=== PATIENT | female | born 1955 | race Hispanic/Latino ===

== ENCOUNTER 2017-11-13 04:59 | Emergency (ER) | payer OTHER ==
[~2017-11-13] VITALS: Ht 157.5 cm; Wt 120.2 kg
[~2017-11-13 04:59] MED LIST: ASPIRIN PO; GABAPENTIN300 MG PO; HYDROCODONE/APAP; LEVAQUIN500 MG PO; LIPITOR20 MG PO; LORTAB 7.5/325 PO; METOCLOPRAMIDE10 MG PO; Z.0.CYCLOBENZAPRINE1 PO; Z.0.MELOXICAM7.5 MG PO; Z.0.METOPROLOL TART2 PO; Z.0.OMEPRAZOLE40 MG PO; Z.0.SIMVASTATIN40 MG PO; Z.2.METFORMIN HCL500 PO
--- OUTSIDE RECORDS SUMMARY | 2017-11-13 05:03 | XMS REPORT | Clinical Summary ---
Author Author [facility] Organization [facility] Address Unknown Phone Unavailable Care Team Providers Care Measurement And Sensing Technician Name Role Phone Abraham Shelton MD PCP Allergies Not on File Current Medications Not on file Active Problems Not on file Encounters Date Type Specialty Care Team Description 01/14/2017 Transcribe Physical Therapy Juan Ybarra MD Facet hypertrophy of Orders lumbosacral region (Primary Dx) after 11/12/2016 Social History Tobacco Use Types Packs/Day Years Used Date Never Assessed Sex Assigned at Date Recorded Not on file Last Filed Vital Signs Not on file Plan of Treatment Health Maintenance Due Date Last Done Comments PAP SMEAR 1974 COLONOSCOPY 2003 MAMMOGRAM 2003 ZOSTER VACCINE 2013 INFLUENZA VACCINE 05/10/2017 Results Not on fileafter 11/12/2016 Insurance Payer Benefit Subscriber ID Type Phone Address Plan / Group [employer] TEX[employer] [id number] [facility] [place] [address]
[2017-11-13] MEDS ORDERED: ACETAMINOPHEN 1000 MG/100 ML IV STA (05:27)
[2017-11-13] MEDS ORDERED: ONDANSETRON HCL INJ 2 MG/ML VIAL IV STA (05:27)
[2017-11-13] MEDS ORDERED: SODIUM CHLORIDE 0.9% 1000ML 1,000 ML IV STA (05:27)
[2017-11-13] MEDS ORDERED: PANTOPRAZOLE 40 MG 10ML VIAL IV STA (05:27)
[2017-11-13 05:45] LABS: BASOPHILS # (AUTO) 0.1 (0.0-0.1); BASOPHILS % 0.6 % (0.0-1.0); EOSINOPHILS # (AUTO) 0.1 (0.0-0.4); EOSINOPHILS % 0.6 % (0.0-6.0); HEMATOCRIT 36.9 % (34.2-44.1); HEMOGLOBIN 11.6 g/dL (12.0-16.0); LYMPHOCYTES # (AUTO) 1.8 (1.0-3.2); LYMPHOCYTES % 13.5 % (18.0-39.1); MEAN CORPUSCULAR HEMOGLOBIN 26.5 pg (28-32); MEAN CORPUSCULAR HGB CONC 31.4 g/dL (31-35); MEAN CORPUSCULAR VOLUME 84.4 fL (81-99); MONOCYTES # (AUTO) 1.1 (0.2-0.8); MONOCYTES % 7.9 % (4.4-11.3); NEUTROPHILS # (AUTO) 10.3 (2.1-6.9); NEUTROPHILS % 76.9 % (38.7-80.0); PLATELET COUNT 280 x10e3/uL (140-360); RED BLOOD COUNT 4.37 x10e6/uL (3.6-5.1); RED CELL DISTRIBUTION WIDTH 14.6 % (11.7-14.4)
[2017-11-13 05:53] LABS: INR 0.96; PARTIAL THROMBOPLASTIN TIME 29.5 seconds (23.8-35.5); PROTHROMBIN TIME 13.3 seconds (11.9-14.5)
[2017-11-13 06:03] LABS: ALANINE AMINOTRANSFERASE 12 IU/L (0-55); ALBUMIN 3.4 g/dL (3.5-5.0); ALBUMIN/GLOBULIN RATIO 0.8 (0.8-2.0); ALKALINE PHOSPHATASE 130 IU/L (40-150); ANION GAP 15.1 mmol/L (8-16); BLOOD UREA NITROGEN 23 mg/dL (7-26); BUN/CREATININE RATIO 29 (6-25); CALCIUM 8.8 mg/dL (8.4-10.2); CARBON DIOXIDE 24 mmol/L (22-29); CHLORIDE 102 mmol/L (98-107); CREATINE KINASE 26 IU/L (29-168); CREATININE, SERUM 0.78 mg/dL (0.57-1.11); EST GLOMERULAR FILTRATION RATE > 60 ML/MIN (60-); GLUCOSE 131 mg/dL (74-118); POTASSIUM 4.1 mmol/L (3.5-5.1); SODIUM 137 mmol/L (136-145)
[2017-11-13 06:06] LABS: INFLUENZAE A&B ANTIGEN (RAPID) NEGATIVE (NEGATIVE); STREPTOCOCCUS GRP A ANTIGEN NEGATIVE (NEGATIVE)
[2017-11-13 06:25] LABS: B-TYPE NATRIURETIC PEPTIDE2 < 10.0 pg/mL (0-100)
[2017-11-13] MEDS ORDERED: KETOROLAC TROMETHAMINE 30 MG/ML VIAL IV STA (07:20)
--- NOTE | 2017-11-13 07:44 | Diagnostic Imaging Report ---
EXAMINATION: Chest, CHEST 2 VIEWS INDICATION: Chest pain COMPARISON: Chest 2 views 03/15/2014 FINDINGS: LINES: None. Heart: Normal cardiac silhouette. Vascular: The pulmonary vasculature is within normal limits. Atherosclerotic calcifications of the aortic arch. Mediastinum: No mediastinal, hilar, or axillary mass or lymphadenopathy. Lungs: No parenchymal mass. No focal consolidation. Pleura: No pleural effusion. No pneumothorax. Bones: No acute osseous abnormality. Degenerative changes of the thoracic spine. Soft tissues: Normal. Impression: No acute radiographic abnormality. Signed by: Dr. Reid Garcia M.D. on 11/13/2017 7:40 AM
== END 2017-11-13 08:00 | disposition home or self-care (01) ==
LOC: ER 04:59
DX: R50.9 Fever, unspecified (principal); R05 Cough; J20.9 Acute bronchitis, unspecified; I10 Essential (primary) hypertension; E11.9 Type 2 diabetes mellitus without complications
CPT/HCPCS: 36415; 71020; 80053; 82550; 82553; 83518; 83605; 83735; 83880; 84484; 85025; 85610; 85730; 87040; 87070; 87400; 93005; 99284; J1885; J2405; J7030; 71046

== ENCOUNTER → 2017-12-01 | Outpatient (CLI) | payer OTHER ==
--- NOTE | 2017-12-01 14:46 | Diagnostic Imaging Report ---
PROCEDURE:BIOPSY THYROID FNA COMPARISON:[facility], [place], OUTSIDE ULTRASOUND IMAGES, 11/07/2017, 11:27. INDICATIONS:THYROID BX/FNA FINDINGS: The patient's right neck was prepped and draped in sterile fashion after the procedure was explained and informed consent was obtained. Ultrasound evaluation showed a 1.4 x 0.9 x 1.3 cm solid, well-circumscribed, hypoechoic nodule in the posterior mid aspect of the right thyroid lobe, with mild increased vascularity. Lidocaine was used for local anesthesia. Under ultrasonic guidance, 7 passes were performed utilizing 10 cc syringes and 25 gauge needles, and accessed by Pathology. The patient tolerated the procedure well, and there were no immediate post-procedural complications. CONCLUSION: 1. Ultrasound guided fine needle biopsy of right thyroid lobe nodule. Boris Dorsey M.D. Dictated by: Boris Dorsey M.D. on 12/01/2017 at 14:47 Electronically approved by: Boris Dorsey M.D. on 12/01/2017 at 14:47
--- NOTE | 2017-12-01 14:47 | Diagnostic Imaging Report ---
PROCEDURE:ULTRASOUND GUIDANCE FOR PROCEDURE COMPARISON:[facility], [place], OUTSIDE ULTRASOUND IMAGES, 11/07/2017, 11:27. INDICATIONS:THYROID BX/FNA CONCLUSION:Please see previously dictated report under biopsy thyroid FNA, performed same date. Boris Dorsey M.D. Dictated by: Boris Dorsey M.D. on 12/01/2017 at 14:47 Electronically approved by: Boris Dorsey M.D. on 12/01/2017 at 14:47
== END ==
LOC: US 11:58
PROVIDERS: ATTEND Family Medicine
DX: E05.90 Thyrotoxicosis, unspecified without thyrotoxic crisis or storm (principal)
CPT/HCPCS: 10022; 76942; 88112; 88172; 88173

== ENCOUNTER 2022-05-18 10:52 | Emergency (ER) | payer MEDICARE ==
[~2022-05-18] VITALS: Ht 157.5 cm; Wt 120.2 kg
[2022-05-18] MEDS ORDERED: METHOCARBAMOL500 MG PEG (14:01)
[2022-05-18] MEDS ORDERED: ANAPROX DS550 MG PO (14:01)
== END 2022-05-18 14:18 | disposition home or self-care (01) ==
LOC: ER 11:32
DX: M54.12 Radiculopathy, cervical region (principal); M50.30 Other cervical disc degeneration, unspecified cervical region; M77.8 Other enthesopathies, not elsewhere classified; I10 Essential (primary) hypertension; R73.03 Prediabetes; E03.9 Hypothyroidism, unspecified; E78.5 Hyperlipidemia, unspecified; K21.9 Gastro-esophageal reflux disease without esophagitis; Z96.643 Presence of artificial hip joint, bilateral
CPT/HCPCS: 72050; 99283